=== PATIENT | male | born 1950 | race Caucasian/White ===

== ENCOUNTER 2017-08-01 07:36 | Emergency (ER) | payer SELFPAY ==
[2017-08-01 07:47] VITALS: BP 135/105
[2017-08-01] MEDS ORDERED: predniSONE TAB* 20 MG PO ONE (07:54)
--- NOTE | 2017-08-01 15:57 | UC ---
Troy Dowd Angela, scribed for Yousif Bloom MD on 08/01/17 at 0750 . Allergic Reaction HPI - HPI Summary HPI Summary: This pt is a 66 y/o male presenting to [facility] c/o worsening swelling and redness areas around his eyes and redness on right forearm x2 days. Pt reports he was doing yard work in his own yard 2 days ago but denies poison lo or poison oak contact. He states that these swollen and red areas are pruritic. Pt notes that this morning he had a blister on right forearm that popped. Denies pain, difficulty breathing, throat tightening, wheezing, swelling of the lips or tongue. - History of Current Complaint Stated Complaint: ALLERGIC REACTION Time Seen by Provider: 08/01/17 07:40 Hx Obtained From: Patient Onset/Duration: Lasting Days, Still Present Severity Currently: None Pain Intensity: 0 - denies pain Pain Scale Used: 0-10 Numeric Location: Other - Around the eyes and right forearm Character: Swelling, Pruritus Aggravating Factor(s): Nothing Alleviating Factor(s): Nothing Associated Signs And Symptoms: Negative: Cough Wheezing, Difficulty Breathing, Hoarseness, Lightheadedness, Rash, Throat Tightening - Allergies/Home Medications Allergies/Adverse Reactions: Allergies Allergy/AdvReac Type Severity Reaction Status Date / Time No Known Allergies Allergy Verified 08/01/17 07:47 PMH/Surg Hx/FS Hx/Imm Hx Other Endocrine History: DENIES: diabetes Other Cardiovascular History: DENIES: HTN - Surgical History Surgical History: None - Family History Known Family History: Negative: Cardiac Disease - CAD - Social History Alcohol Use: Daily Alcohol Amount: 2beers/day Substance Use Type: None Smoking Status (MU): Never Smoked Tobacco - Immunization History Most Recent Tetanus Shot: UTD Review of Systems Constitutional: Negative Skin: Other - redness and swelling around eyes and right forearm Eyes: Other - swelling and redness around eyes. ENT: Negative Respiratory: Negative Cardiovascular: Negative Gastrointestinal: Negative Genitourinary: Negative Motor: Negative Neurovascular: Negative Musculoskeletal: Negative Neurological: Negative Psychological: Negative Is Patient Immunocompromised?: No All Other Systems Reviewed And Are Negative: Yes Physical Exam - Summary Physical Exam Summary: VITAL SIGNS: Reviewed. GENERAL: Patient is a well-developed and nourished male who is lying comfortable in the stretcher. Patient is not in any acute respiratory distress. HEAD AND FACE: Normocephalic EYES: PERRLA, EOMI x 2. Erythematous and swelling area around the eyes, that does not look infected. EARS: Hearing grossly intact. MOUTH: Oropharynx within normal limits. NECK: Supple, trachea is midline, no adenopathy, no JVD, no carotid bruit. CHEST: Symmetric, no tenderness at palpation LUNGS: Clear to auscultation bilaterally. No wheezing or crackles. CVS: Regular rate and rhythm, S1 and S2 present, no murmurs or gallops appreciated. ABDOMEN: Soft, non-tender. Bowel sounds are normal. No abdominal abnormal pulsations. EXTREMITIES: Full ROM in all major joints, no edema, no cyanosis or clubbing. NEURO: Alert and oriented x 3. No acute neurological deficits. Speech is normal and follows commands. SKIN: Dry and warm. Erythematous and swelling area around the eyes, that does not look infected. One blister on right forearm. Triage Information Reviewed: Yes Vital Signs: Initial Vital Signs Temp 97.7 F 08/01/17 07:40 Pulse 70 08/01/17 07:40 Resp 20 08/01/17 07:40 BP 135/105 08/01/17 07:40 Pulse Ox 95 08/01/17 07:40 Vital Signs Reviewed: Yes Allergic Reaction Course/Dx - Course Course Of Treatment: This pt is a 66 y/o male presenting to [facility] c/o worsening swelling and redness areas around his eyes and redness on right forearm x2 days. Pt reports he was doing yard work in his own yard 2 days ago but denies poison lo or poison oak contact. He states that these swollen and red areas are pruritic. Pt notes that this morning he had a blister on right forearm that popped. Denies pain, difficulty breathing, throat tightening, wheezing, swelling of the lips or tongue. On exam airway is patent. He does not have difficulty breathing, throat tightening, lip swelling, tongue swelling. Pt has one blister that popped on right forearm, which I cultured. Pt was given one dose of prednisone at Urgent Care. He will be discharged to home with follow up from PCP. He was given prescriptions for Benadryl, prednisone, and Kenalog cream. Pt was instructed to return to the urgent care or go to ER immediately if any of the symptoms return or worsens. Plan of care was discussed with the patient and pt understands and agrees. All questions were answered to patient satisfaction. There were no further complaints or concerns. Pt is hemodynamically stable, alert and oriented x3. The patient was found to have increased blood pressure in UC. The patient will follow up with PCP for better control of BP. - Differential Dx/Diagnosis Provider Diagnoses: Contact dermatitis. Allergic reaction Discharge - Sign-Out/Discharge Documenting (check all that apply): Discharge/Admit/Transfer - Discharge - Discharge Plan Condition: Stable Disposition: HOME Prescriptions: diPHENhydraMINE PO* [Benadryl PO 25 MG TAB*] 25 mg PO TID PRN #30 tab PRN Reason: Allergy Symptoms predniSONE [Prednisone 20 MG TAB] 20 mg PO DAILY #10 tablet Triamcinolone 0.1% CREAM (NF) [Kenalog 0.1% Cream (NF)] 1 applic .SEE ORDER BID #60 gm Patient Education Materials: Contact Dermatitis (ED), Allergies (ED) Referrals: Carlos Vidal MD [Primary Care Provider] - Additional Instructions: Take medications as instructed Return to the UC if symptoms worsen The documentation as recorded by the Troy louis Angela accurately reflects the service I personally performed and the decisions made by , Yousif Bloom MD.
--- NOTE | 2017-08-03 16:44 | PN ---
Progress Note - Progress Note Date of Service: 08/03/17 Note: Wound culture grew normal magdy. No further action required.
--- NOTE | 2017-08-04 12:14 | UC ---
- Progress Note Progress Note: wound culture normal magdy - final no change martitaj 08/04/2017 Discharge - Sign-Out/Discharge Documenting (check all that apply): Post-Discharge Follow Up - Discharge Plan Condition: Stable Disposition: HOME Prescriptions: diPHENhydraMINE PO* [Benadryl PO 25 MG TAB*] 25 mg PO TID PRN #30 tab PRN Reason: Allergy Symptoms predniSONE [Prednisone 20 MG TAB] 20 mg PO DAILY #10 tablet Triamcinolone 0.1% CREAM (NF) [Kenalog 0.1% Cream (NF)] 1 applic .SEE ORDER BID #60 gm Patient Education Materials: Contact Dermatitis (ED), Allergies (ED) Referrals: Carlos Vidal MD [Primary Care Provider] - Additional Instructions: Take medications as instructed Return to the UC if symptoms worsen - Billing Disposition and Condition Condition: STABLE Disposition: Home
== END 2017-08-01 08:03 | disposition home or self-care (01) ==
LOC: UCEAST 07:36
DX: L23.9 Allergic contact dermatitis, unspecified cause (principal)
CPT/HCPCS: 87070; 87077; 87205; 99212; G0463; J7512